=== PATIENT | male | born 1935 | race Caucasian/White ===

== ENCOUNTER 2017-10-21 18:34 | Emergency (ER) | payer OTHER ==
[~2017-10-21] VITALS: Ht 172.7 cm; Wt 90.5 kg
[2017-10-21 18:35] VITALS: BP 122/58; PULSE 72; RESP 18; TEMP 98.9; O2SAT 94
--- NOTE | 2017-10-21 20:18 | PD ---
HPI Chief Complaint: GI Complaint Time Seen by Provider: 20:17 Travel History International Travel<30 days: No Contact w/Intl Traveler<30days: No Traveled to known affect area: No History of Present Illness HPI 82-year-old male arrives with the hiccups for 2 weeks. He reports hiccuping several times on expiration leading to shortness of breath. He has no chest pain. Has had no fever. Patient continues initially the headache up's seemed to resolve while he was walking however now they're constant. Various medications use at home/home remedies conferred no benefit. He also reports a dull pain in the middle the back with a jabbing quality. Timing constant. Severity moderate. PFSH Social History Tobacco Use: No Allergies-Medications (Allergen,Severity, Reaction): Coded Allergies: metformin (Verified Allergy, Unknown, 10/21/17) Reported Meds & Prescriptions Reported Meds & Active Scripts Active Prochlorperazine Maleate 10 Mg Tab 10 Mg PO Q6H PRN Review of Systems Except as stated in HPI: all other systems reviewed are Neg General / Constitutional: No: Fever Respiratory: Positive: Shortness of Breath, No: Cough Physical Exam Narrative GENERAL: 82-year-old male well-nourished well-developed pleasant, hiccuping SKIN: Focused skin assessment warm/dry. HEAD: Atraumatic. Normocephalic. EYES: Pupils equal and round. No scleral icterus. No injection or drainage. ENT: No nasal bleeding or discharge. Mucous membranes pink and moist. NECK: Trachea midline. No JVD. CARDIOVASCULAR: Regular rate and rhythm. No murmur appreciated. RESPIRATORY: No accessory muscle use. Clear to auscultation. Breath sounds equal bilaterally. GASTROINTESTINAL: Abdomen soft, non-tender, nondistended. Hepatic and splenic margins not palpable. MUSCULOSKELETAL: No obvious deformities. No clubbing. No cyanosis. No edema. NEUROLOGICAL: Awake and alert. No obvious cranial nerve deficits. Motor grossly within normal limits. Normal speech. PSYCHIATRIC: Appropriate mood and affect; insight and judgment normal. Data Data Last Documented VS Vital Signs Date Time Temp Pulse Resp B/P (MAP) Pulse Ox O2 Delivery O2 Flow Rate FiO2 10/21/17 23:15 52 18 156/70 (98) 98 10/21/17 21:32 Room Air 10/21/17 18:35 98.9 Vital signs reviewed Orders Orders Electrocardiogram (10/21/17 20:34) Basic Metabolic Panel (Bmp) (10/21/17 20:34) Ckmb (Isoenzyme) Profile (10/21/17 20:34) Complete Blood Count With Diff (10/21/17 20:34) Magnesium (Mg) (10/21/17 20:34) Prothrombin Time / Inr (Pt) (10/21/17 20:34) Act Partial Throm Time (Ptt) (10/21/17 20:34) Troponin I (10/21/17 20:34) Chest, Single Ap (10/21/17 20:34) Ecg Monitoring (10/21/17 20:34) Bilateral Bp Monitoring (10/21/17 20:34) Iv Access Insert/Monitor (10/21/17 20:34) Oximetry (10/21/17 20:34) Oxygen Administration (10/21/17 20:34) Prochlorperazine Inj (Compazine Inj) (10/21/17 21:15) Ct Thorax/ Chest W Iv Contrast (10/21/17 ) Ed Discharge Order (10/21/17 23:07) Labs Laboratory Tests Test 10/21/17 20:40 White Blood Count 9.5 TH/MM3 Red Blood Count 4.45 MIL/MM3 Hemoglobin 13.7 GM/DL Hematocrit 40.9 % Mean Corpuscular Volume 92.1 FL Mean Corpuscular Hemoglobin 30.8 PG Mean Corpuscular Hemoglobin Concent 33.5 % Red Cell Distribution Width 13.1 % Platelet Count 213 TH/MM3 Mean Platelet Volume 8.9 FL Neutrophils (%) (Auto) 70.0 % Lymphocytes (%) (Auto) 18.4 % Monocytes (%) (Auto) 9.1 % Eosinophils (%) (Auto) 1.7 % Basophils (%) (Auto) 0.8 % Neutrophils # (Auto) 6.6 TH/MM3 Lymphocytes # (Auto) 1.7 TH/MM3 Monocytes # (Auto) 0.9 TH/MM3 Eosinophils # (Auto) 0.2 TH/MM3 Basophils # (Auto) 0.1 TH/MM3 CBC Comment DIFF FINAL Differential Comment Prothrombin Time 10.3 SEC Prothromb Time International Ratio 1.0 RATIO Activated Partial Thromboplast Time 25.8 SEC Blood Urea Nitrogen 30 MG/DL Creatinine 1.55 MG/DL Random Glucose 195 MG/DL Calcium Level 8.9 MG/DL Magnesium Level 1.9 MG/DL Sodium Level 137 MEQ/L Potassium Level 4.3 MEQ/L Chloride Level 100 MEQ/L Carbon Dioxide Level 28.7 MEQ/L Anion Gap 8 MEQ/L Estimat Glomerular Filtration Rate 43 ML/MIN Total Creatine Kinase 43 U/L Troponin I LESS THAN 0.02 NG/ML MDM Medical Decision Making Medical Screen Exam Complete: Yes Emergency Medical Condition: Yes Medical Record Reviewed: Yes Differential Diagnosis Tumor, pickups, brain lesion Narrative Course CBC & BMP Diagram 10/21/17 20:40 Calcium Level 8.9, Magnesium Level 1.9 Last 24 hours Impressions Chest X-Ray 10/21/172033 Signed Impressions: Service Date/Time: Saturday, October 21, 2017 20:57 - CONCLUSION: 1. Post median sternotomy. Mild cardiomegaly. No consolidation or effusion. Ryan Ruiz MD Chest CT 10/21/17 0000 Signed Impressions: Service Date/Time: Saturday, October 21, 2017 21:47 - CONCLUSION: 1. 9 mm nodule at the right lung base. Biopsy would be difficult given proximity to the diaphragm. Further evaluation with PET scan recommended. Scattered parenchymal scarring in the lungs. 2. Dilatation of esophagus most characteristic of esophageal motility disorder. 3. Moderate to severe coronary artery calcifications. 4. Fatty liver. No effusion or adenopathy. Previous sternotomy. Ryan Ruiz MD Results CT scan discussed the patient who understands the necessity of outside follow-up is absolutely mandatory to rule out lung cancer the very concerning cause for 2 weeks a headache absence 82-year-old male. There was fortunately an excellent response to the Compazine and the patient was discharged with a Compazine prescription. Diagnosis Primary Impression: Chronic hiccoughs Additional Impression: Mass of right lung Referrals: [facility] 2 days Med/Other Pt SpecificInfo: Prescription(s) given Scripts Prochlorperazine Maleate (Prochlorperazine Maleate) 10 Mg Tab 10 MG PO Q6H Y for HICCOUGHS, #20 TAB 0 Refills Prov: Marcello Pollack MD 10/21/17 Disposition: 01 DISCHARGE HOME Condition: Stable Marcello Pollack MD Oct 21, 2017 20:17
[2017-10-21 20:46] VITALS: O2SAT 98
[2017-10-21 20:57] LABS: AUTOMATED NEUTROPHIL # 6.6 TH/MM3 (1.8-7.7); BASOPHIL # 0.1 TH/MM3 (0-0.2); BASOPHIL % 0.8 % (0.0-2.0); EOSINOPHIL # 0.2 TH/MM3 (0-0.4); EOSINOPHIL % 1.7 % (0.0-4.0); HEMATOCRIT 40.9 % (39.0-51.0); HEMOGLOBIN 13.7 GM/DL (13.0-17.0); LYMPH % 18.4 % (9.0-44.0); LYMPHOCYTE # 1.7 TH/MM3 (1.0-4.8); MEAN CELL VOLUME 92.1 FL (80.0-100.0); MEAN CORPUSCULAR HEMOGLOBIN 30.8 PG (27.0-34.0); MEAN CORPUSCULAR HGB CONC 33.5 % (32.0-36.0); MEAN PLATELET VOLUME 8.9 FL (7.0-11.0); MONO % 9.1 % (0.0-8.0); MONOCYTE # 0.9 TH/MM3 (0-0.9); PLATELET COUNT 213 TH/MM3 (150-450); RED BLOOD COUNT 4.45 MIL/MM3 (4.50-5.90); RED CELL DISTRIBUTION WIDTH 13.1 % (11.6-17.2); WHITE BLOOD COUNT 9.5 TH/MM3 (4.0-11.0)
[2017-10-21 21:06] LABS: PROTHROMBIN TIME - PATIENT 10.3 SEC (9.8-11.6)
[2017-10-21 21:08] LABS: BICARBONATE 28.7 MEQ/L (21.0-32.0); BLOOD UREA NITROGEN 30 MG/DL (7-18); CALCIUM 8.9 MG/DL (8.5-10.1); CHLORIDE 100 MEQ/L (98-107); CREATININE 1.55 MG/DL (0.60-1.30); GLOMERULAR FILTRATION RATE 43 ML/MIN (>89); GLUCOSE,RANDOM 195 MG/DL (74-106); MAGNESIUM 1.9 MG/DL (1.5-2.5); SODIUM (NA) 137 MEQ/L (136-145)
[2017-10-21 21:12] LABS: TROPONIN I LESS THAN 0.02 NG/ML (0.02-0.05)
[2017-10-21] MEDS ORDERED: PROCHLORPERAZINE INJ 10 MG/2 ML VIAL IV PUSH ONE (21:15)
--- NOTE | 2017-10-21 21:19 | RADRPT ---
EXAM DATE/TIME: 10/21/2017 20:57 [facility] COMPARISON: No previous studies available for comparison. INDICATIONS : Hiccups for 2 weeks. MEDICAL HISTORY : Hypertension. Diabetes mellitus type II. Former smoker. SURGICAL HISTORY : CABG. ENCOUNTER: Initial ACUITY: 2 weeks PAIN SCORE: 0/10 LOCATION: Bilateral chest. FINDINGS: A single view of the chest demonstrates the lungs to be symmetrically aerated without evidence of mas s, infiltrate or effusion. The cardiomediastinal contours mildly prominent. Previous median sternoto my. Tortuous aorta. CONCLUSION: 1. Post median sternotomy. Mild cardiomegaly. No consolidation or effusion. Ryan Ruiz MD on October 21, 2017 at 21:15 Board Certified Radiologist. This report was verified electronically.
[2017-10-21 21:32] VITALS: BP 141/64; PULSE 54; RESP 18; O2SAT 97
[2017-10-21] MEDS ORDERED: IOHEXOL 350 MG/ML 10 ML VIAL (for RAD DIAG) IVCONTRAST ONE (21:47)
--- NOTE | 2017-10-21 22:29 | RADRPT ---
EXAM DATE/TIME: 10/21/2017 21:47 [facility] COMPARISON: No previous studies available for comparison. INDICATIONS : Cough; rule out mass. IV CONTRAST: 60 cc Omnipaque 350 (iohexol) IV RADIATION DOSE: 6.39 CTDIvol (mGy) MEDICAL HISTORY : Hypertension. Myocardial infarction. Mesothelioma SURGICAL HISTORY : Hernia repair ENCOUNTER: Initial ACUITY: 1 day PAIN SCALE: 0/10 LOCATION: chest TECHNIQUE: Volumetric scanning of the chest was performed. Using automated exposure control and adjustment of t he mA and/or kV according to patient size, radiation dose was kept as low as reasonably achievable to obtain optimal diagnostic quality images. DICOM format image data is available electronically for review and comparison. Follow-up recommendations for detected pulmonary nodules are based at a minimum on nodule size and pa tient risk factors according to Fleischner Society Guidelines. FINDINGS: Postoperative median sternotomy. Scattered linear parenchymal scarring in the lungs. 9 mm nodule at t he right lung base, well circumscribed. Mild esophageal dilatation likely representing esophageal motility disorder. No hilar, mediastinal ax illary adenopathy. Moderate coronary calcifications. No acute findings in the upper abdomen. Mild fatty liver. CONCLUSION: 1. 9 mm nodule at the right lung base. Biopsy would be difficult given proximity to the diaphragm. Fu rther evaluation with PET scan recommended. Scattered parenchymal scarring in the lungs. 2. Dilatation of esophagus most characteristic of esophageal motility disorder. 3. Moderate to severe coronary artery calcifications. 4. Fatty liver. No effusion or adenopathy. Previous sternotomy. Ryan Ruiz MD on October 21, 2017 at 22:22 Board Certified Radiologist. This report was verified electronically.
[2017-10-21] MEDS ORDERED: PROC10TA PO (23:04)
[2017-10-21 23:15] VITALS: BP 156/70
--- NOTE | 2017-10-22 13:34 | EKG ---
Date Performed: 10/21/2017 Time Performed: 20:30:32 PTAGE: 82 years EKG: Atrial flutter with somewhat slow ventricular response Right bundle branch block [place] indet erminate Nonspecific ST-T wave change NO PREVIOUS TRACING DOCTOR: Jabari Lee Interpretating Date/Time 10/22/2017 13:33:12
== END 2017-10-21 23:31 | disposition home or self-care (01) ==
LOC: NEPD 18:34
DX: R06.6 Hiccough (principal); R91.8 Other nonspecific abnormal finding of lung field; R06.02 Shortness of breath; I48.92 Unspecified atrial flutter
CPT/HCPCS: 71045; 71260; 80048; 82550; 83735; 84484; 85025; 85610; 85730; 93005; 96374; 99285; J0780; Q9967

== ENCOUNTER 2017-10-23 10:38 | Observation (INO) | payer OTHER ==
[~2017-10-23] VITALS: Ht 172.7 cm; Wt 90.6 kg
[2017-10-23] VITALS (9 sets, daily range): BP systolic 114–161; BP diastolic 57–98; PULSE 57–107; RESP 17–20; TEMP 97.4–98.2; O2SAT 92–99
[~2017-10-23 10:38] MED LIST: PROC10TA PO
[2017-10-23] MEDS ORDERED: METF500T PO (11:07)
[2017-10-23] MEDS ORDERED: GLIP5TAB8 PO (11:07)
[2017-10-23] MEDS ORDERED: PRAV10TA PO (11:07)
[2017-10-23] MEDS ORDERED: TERA1CAP3 PO (11:07)
[2017-10-23] MEDS ORDERED: ASPI81TA16 PO (11:07)
[2017-10-23] MEDS ORDERED: SODIUM CHLORIDE 0.9% FLUSH 10 ML FLUSH IVF PRN (11:15)
--- NOTE | 2017-10-23 11:30 | PD ---
HPI Chief Complaint: Syncope/Near-Syncope Time Seen by Provider: 10:51 Travel History International Travel<30 days: No Contact w/Intl Traveler<30days: No Traveled to known affect area: No History of Present Illness HPI This patient is brought in after having a syncopal episode while eating breakfast. He was out at a restaurant with a friend who witnessed him lose consciousness and slumped over. No injury occurred. For The last 4 days the patient's having spells of near syncope and feeling lightheaded frequently. He denies any chest pain. He has history of chronic A. fib and takes a baby aspirin daily. He has history of bypass 16 years ago. Symptoms severity is moderate. No alleviating factors. Exacerbating factors. PFSH Past Medical History Hx Anticoagulant Therapy: Yes Cardiovascular Problems: Yes High Cholesterol: Yes Diabetes: Yes Patient Takes Glucophage: Yes Diminished Hearing: No Hypertension: Yes Myocardial Infarction: Yes Tetanus Vaccination: Unknown Influenza Vaccination: Yes Past Surgical History Abdominal Surgery: Yes (AB HERNIA REPAIR ) Cardiac Surgery: Yes (BYPASS) Eye Surgery: Yes (R EYE) Tonsillectomy: Yes Social History Alcohol Use: No Tobacco Use: No Substance Use: No Allergies-Medications (Allergen,Severity, Reaction): Coded Allergies: metformin (Verified Allergy, Unknown, 10/23/17) Reported Meds & Prescriptions Reported Meds & Active Scripts Active Prochlorperazine Maleate 10 Mg Tab 10 Mg PO Q6H PRN Reported Terazosin (Terazosin HCl) Unknown Strength Cap 1 Cap PO HS Aspirin Adult Low Strength (Aspirin) 81 Mg Tabdr 81 Mg PO DAILY Glipizide Unknown Strength Tab 1 Tab PO BID Take 30 minutes before a meal Metformin (Metformin HCl) Unknown Strength Tab 1 Tab PO BID Pravastatin Unknown Strength Tab 1 Tab PO DAILY Review of Systems General / Constitutional: No: Fever Eyes: No: Visual changes HENT: Positive: Lightheadedness, No: Headaches Cardiovascular: Positive: Irregular Rhythm, Syncope, No: Chest Pain or Discomfort Respiratory: No: Shortness of Breath Gastrointestinal: No: Abdominal Pain Genitourinary: No: Dysuria Musculoskeletal: No: Pain Skin: No Rash Neurologic: Positive: Dizziness, Syncope, No: Weakness Psychiatric: No: Depression Endocrine: No: Polydipsia Hematologic/Lymphatic: No: Easy Bruising Physical Exam Narrative GENERAL: Well-nourished, well-developed patient in no apparent distress. SKIN: Focused skin assessment reveals no rash and nodules. Skin is Warm and dry. HEAD: Atraumatic. Normocephalic. EYES: Pupils equal and round. No scleral icterus. No injection or drainage. ENT: No nasal bleeding or discharge. Mucous membranes pink and moist. NECK: Trachea midline. No JVD. CARDIOVASCULAR: Irregularly irregular rhythm. No murmur appreciated. Heart rate 100 RESPIRATORY: No accessory muscle use. Clear to auscultation. Breath sounds equal bilaterally. GASTROINTESTINAL: Abdomen soft, non-tender, nondistended. Hepatic and splenic margins not palpable. MUSCULOSKELETAL: No obvious deformities. No clubbing. No cyanosis. No edema. NEUROLOGICAL: Awake and alert. No obvious cranial nerve deficits. Motor grossly within normal limits. Normal speech. PSYCHIATRIC: Appropriate mood and affect; insight and judgment normal. Data Data Last Documented VS Vital Signs Date Time Temp Pulse Resp B/P (MAP) Pulse Ox O2 Delivery O2 Flow Rate FiO2 10/23/17 11:34 95 Room Air 10/23/17 11:00 96 17 10/23/17 10:39 97.6 Orders Orders Electrocardiogram (10/23/17 ) Electrocardiogram (10/23/17 11:10) Basic Metabolic Panel (Bmp) (10/23/17 11:10) Complete Blood Count With Diff (10/23/17 11:10) Ecg Monitoring (10/23/17 11:10) Iv Access Insert/Monitor (10/23/17 11:10) Oximetry (10/23/17 11:10) Sodium Chloride 0.9% Flush (Ns Flush) (10/23/17 11:15) Labs Laboratory Tests Test 10/23/17 11:25 White Blood Count 10.7 TH/MM3 Red Blood Count 4.51 MIL/MM3 Hemoglobin 14.1 GM/DL Hematocrit 42.0 % Mean Corpuscular Volume 93.1 FL Mean Corpuscular Hemoglobin 31.3 PG Mean Corpuscular Hemoglobin Concent 33.6 % Red Cell Distribution Width 13.2 % Platelet Count 212 TH/MM3 Mean Platelet Volume 9.2 FL Neutrophils (%) (Auto) 79.1 % Lymphocytes (%) (Auto) 11.5 % Monocytes (%) (Auto) 7.8 % Eosinophils (%) (Auto) 1.1 % Basophils (%) (Auto) 0.5 % Neutrophils # (Auto) 8.5 TH/MM3 Lymphocytes # (Auto) 1.2 TH/MM3 Monocytes # (Auto) 0.8 TH/MM3 Eosinophils # (Auto) 0.1 TH/MM3 Basophils # (Auto) 0.1 TH/MM3 CBC Comment DIFF FINAL Differential Comment Blood Urea Nitrogen 29 MG/DL Creatinine 1.53 MG/DL Random Glucose 175 MG/DL Calcium Level 8.5 MG/DL Sodium Level 139 MEQ/L Potassium Level 3.7 MEQ/L Chloride Level 102 MEQ/L Carbon Dioxide Level 27.5 MEQ/L Anion Gap 10 MEQ/L Estimat Glomerular Filtration Rate 44 ML/MIN MDM Medical Decision Making Medical Screen Exam Complete: Yes Emergency Medical Condition: Yes Medical Record Reviewed: Yes Differential Diagnosis A. fib with RVR, SVT, ventricular tachycardia Narrative Course I have reviewed the patient's electronic medical record. Patient was here 2 days ago with hiccup problems and had extensive workup including labs and CT and chest x-ray IV placed CBC is normal shows minor renal insufficiency Metabolic profile I reviewed his EKG which shows atrial fibrillation but rate controlled Extended cardiac monitoring reveals rate controlled A. fib Patient is neurologically intact I'm concerned about cardiac cause of his true syncope in the setting of an elderly male with known cardiac disease Is also been having events for the last 4 days. I reviewed his medical residents. He will be a telemetry observation for syncope evaluation Diagnosis Primary Impression: Syncope Qualified Codes: R55 - Syncope and collapse Additional Impression: Chronic atrial fibrillation Admitting Information Admitting Physician Requests: Observation Escobar Banegas MD Oct 23, 2017 11:30
[2017-10-23 11:45] LABS: AUTOMATED NEUTROPHIL # 8.5 TH/MM3 (1.8-7.7); BASOPHIL # 0.1 TH/MM3 (0-0.2); BASOPHIL % 0.5 % (0.0-2.0); EOSINOPHIL # 0.1 TH/MM3 (0-0.4); EOSINOPHIL % 1.1 % (0.0-4.0); HEMOGLOBIN 14.1 GM/DL (13.0-17.0); LYMPH % 11.5 % (9.0-44.0); LYMPHOCYTE # 1.2 TH/MM3 (1.0-4.8); MEAN CELL VOLUME 93.1 FL (80.0-100.0); MEAN CORPUSCULAR HEMOGLOBIN 31.3 PG (27.0-34.0); MEAN CORPUSCULAR HGB CONC 33.6 % (32.0-36.0); MEAN PLATELET VOLUME 9.2 FL (7.0-11.0); MONO % 7.8 % (0.0-8.0); MONOCYTE # 0.8 TH/MM3 (0-0.9); NEUT % 79.1 % (16.0-70.0); PLATELET COUNT 212 TH/MM3 (150-450); RED BLOOD COUNT 4.51 MIL/MM3 (4.50-5.90); RED CELL DISTRIBUTION WIDTH 13.2 % (11.6-17.2); WHITE BLOOD COUNT 10.7 TH/MM3 (4.0-11.0)
[2017-10-23 12:03] LABS: BICARBONATE 27.5 MEQ/L (21.0-32.0); CALCIUM 8.5 MG/DL (8.5-10.1); CREATININE 1.53 MG/DL (0.60-1.30)
--- NOTE | 2017-10-23 13:52 | HHI.HP ---
[facility] Service Family Medicine Primary Care Physician [facility] Admission Diagnosis syncope, chronic a fib Diagnoses: International Travel<30 Days: No Contact w/Intl Traveler<30days: No Known Affected Area: No History of Present Illness 82 y/o M , pmhx of Anton, passed out this morning at a restaurant and last night at [employer] [facility]. This morning in the restaurant he was eating his family H and all of a sudden felt dizzy and felt like he is about to pass out. He told his he is going to pass out and then he had a 30 second period where he stared off to the right and the distance and then passed out for 2 minutes. When he was up or even the night before he also felt dizzy, sprays blurry vision , and felt like he is going to pass out. He did not stared to the distance or pass out on this occasion, however he did experience stool incontinence and [facility] The patient admits that he feels like he has not been drinking enough water lately. The complains that the patient has been fatigued for the past few months and he seems to fall asleep very easily at random times throughout the day. Denies any chest pain/shortness of breath. Denies any headache. The patient has been on a Holter monitor before for similar issues and his heart rate was noted to be between 45 and 140. The patient baseline does not have any vision out of his right eye. He has been having difficulty seeing out of his left eye for years also. He has recently brought this up with his PCP in their undergoing workup. The patient was here on Tuesday for 2 weeks of hiccups and all of his labs were normal at that point. (Ivone Orosco MD R2) Review of Systems Constitutional: COMPLAINS OF: Weight loss (20 lbs since June), Chills ( last night), Change in appetite (decreased in last 3 weeks), DENIES: Fever Endocrine: DENIES: Polydipsia, Polyuria Eyes: DENIES: Photosensitivity Ears, nose, mouth, throat: DENIES: Oral lesions, Throat pain Respiratory: COMPLAINS OF: Wheezing (wheezing a few weeks ago), DENIES: Cough Cardiovascular: DENIES: Dyspnea on Exertion, Lower Extremity Edema, Orthopnea Gastrointestinal: DENIES: Black stools, Bloody stools Genitourinary: DENIES: Hematuria, Testicular Pain Musculoskeletal: DENIES: Muscle aches, Stiffness Integumentary: DENIES: Nail changes, Rash Neurologic: DENIES: Headache, Paresthesias Psychiatric: DENIES: Mood changes, Depression Other Afibb & bypass (last seen 16 years ago) 5-6 years ago 45-200 Holter monitor Diabetes HTN lung nodule dx on tuesday (Ivone Orosco MD R2) Past Family Social History Past Medical History Afibb & bypass (last seen 16 years ago) 5-6 years ago he had a Holter monitor Diabetes HTN lung nodule dx on tuesday : 9 mm nodule at right lung base. Patient advised to follow-up with PET scan. "Asbestos lungs" per PCP (he Tuesday CT shows scattered parenchymal scarring in the lungs) Past Surgical History bypass 16 years ago eye surgery knee cartilage ankle surgery tonsillectomy Reported Medications Metoprolol Hydrochlorothiazide (unknown doses) (Ivone Orosco MD R2) Allergies: Coded Allergies: MRI PRECAUTION (Verified Adverse Reaction, Severe, METAL IN EYE, 10/24/17) PT HAS LARGE METAL FRAGMENT IN EYE AND WAS TOLD NEVER TO HAVE MRI. SEE CT. Family History 2 brothers: lung cancer Dad: lung cancer Mom: healthy Social History live at home alone, [place] smoker quit in 1989 (50 years x 2.5packs/day), used to have a drinking problem ( quit 1997), no drugs (Ivone Orosco MD R2) Physical Exam Vital Signs Vital Signs Date Time Temp Pulse Resp B/P (MAP) Pulse Ox O2 Delivery O2 Flow Rate FiO2 10/23/17 11:34 95 Room Air 10/23/17 11:00 96 17 120/98 (105) 94 Room Air 10/23/17 10:54 94 Room Air 10/23/17 10:39 97.6 107 18 120/57 (78) 92 Physical Exam GENERAL: This is a well-nourished, well-developed patient, in no apparent distress. SKIN: No rashes, ecchymoses or lesions. Cool and dry. HEAD: Atraumatic. Normocephalic. No temporal or scalp tenderness. EYES: Pupils equal round and reactive. Extraocular motions intact. No scleral icterus. No injection or drainage. ENT: Nose without bleeding, purulent drainage or septal hematoma. Throat without erythema, tonsillar hypertrophy or exudate. Uvula midline. Airway patent. NECK: Trachea midline. No JVD or lymphadenopathy. Supple, nontender, no meningeal signs. CARDIOVASCULAR: Irregular rhythm noted, 3/6 systolic murmur, gallops, or rubs. RESPIRATORY: Clear to auscultation. Breath sounds equal bilaterally. No wheezes , rales, or rhonchi. GASTROINTESTINAL: Abdomen soft, non-tender, nondistended. No hepato-splenomegaly , or palpable masses. No guarding. MUSCULOSKELETAL: Extremities without clubbing, cyanosis, or edema. No joint tenderness, effusion, or edema noted. No calf tenderness. Negative Homans sign bilaterally. NEUROLOGICAL: Awake and alert. Cranial nerves II through XII intact. Motor and sensory grossly within normal limits. Five out of 5 muscle strength in all muscle groups. Normal speech. Laboratory Laboratory Tests Test 10/23/17 11:25 White Blood Count 10.7 Red Blood Count 4.51 Hemoglobin 14.1 Hematocrit 42.0 Mean Corpuscular Volume 93.1 Mean Corpuscular Hemoglobin 31.3 Mean Corpuscular Hemoglobin Concent 33.6 Red Cell Distribution Width 13.2 Platelet Count 212 Mean Platelet Volume 9.2 Neutrophils (%) (Auto) 79.1 Lymphocytes (%) (Auto) 11.5 Monocytes (%) (Auto) 7.8 Eosinophils (%) (Auto) 1.1 Basophils (%) (Auto) 0.5 Neutrophils # (Auto) 8.5 Lymphocytes # (Auto) 1.2 Monocytes # (Auto) 0.8 Eosinophils # (Auto) 0.1 Basophils # (Auto) 0.1 CBC Comment DIFF FINAL Differential Comment Blood Urea Nitrogen 29 Creatinine 1.53 Random Glucose 175 Calcium Level 8.5 Sodium Level 139 Potassium Level 3.7 Chloride Level 102 Carbon Dioxide Level 27.5 Anion Gap 10 Estimat Glomerular Filtration Rate 44 (Ivone Orosco MD R2) Result Diagram: 10/23/17 1125 10/23/17 1125 Septic Shock Reassessment Septic shock perfusion: reassessment completed (Ivone Orosco MD R2) Caprini VTE Risk Assessment Caprini VTE Risk Assessment: No/Low Risk (score <= 1) Caprini Risk Assessment Model Point Value = 1 Point Value = 2 Point Value = 3 Point Value = 5 Age 41-60 Minor surgery BMI > 25 kg/m2 Swollen legs Varicose veins or History of unexplained or recurrent spontaneous Oral contraceptives or hormone replacement Sepsis (< 1 month) Serious lung disease, including pneumonia (< 1 month) Abnormal pulmonary function Acute myocardial infarction Congestive heart failure (< 1 month) History of inflammatory bowel disease Medical patient at bed rest Age 61-74 Arthroscopic surgery Major open surgery (> 45 min) Laparoscopic surgery (> 45 min) Malignancy Confined to bed (> 72 hours) Immobilizing plaster cast Central venous access Age >= 75 History of VTE Family history of VTE Factor V Leiden Prothrombin [id number] Lupus anticoagulant Anticardiolipin antibodies Elevated serum homocysteine Heparin-induced thrombocytopenia Other congenital or acquired thrombophilia Stroke (< 1 month) Elective arthroplasty Hip, pelvis, or leg fracture Acute spinal cord injury (< 1 month) Prophylaxis Regimen Total Risk Factor Score Risk Level Prophylaxis Regimen 0-1 Low Early ambulation 2 Moderate Order ONE of the following: *Sequential Compression Device (SCD) *Heparin 5000 units SQ BID 3-4 Higher Order ONE of the following medications: *Heparin 5000 units SQ TID *Enoxaparin/Lovenox 40 mg SQ daily (WT < 150 kg, CrCl > 30 mL/min) *Enoxaparin/Lovenox 30 mg SQ daily (WT < 150 kg, CrCl > 10-29 mL/min) *Enoxaparin/Lovenox 30 mg SQ BID (WT < 150 kg, CrCl > 30 mL/min) AND/OR *Sequential Compression Device (SCD) 5 or more Highest Order ONE of the following medications: *Heparin 5000 units SQ TID (Preferred with Epidurals) *Enoxaparin/Lovenox 40 mg SQ daily (WT < 150 kg, CrCl > 30 mL/min) *Enoxaparin/Lovenox 30 mg SQ daily (WT < 150 kg, CrCl > 10-29 mL/min) *Enoxaparin/Lovenox 30 mg SQ BID (WT < 150 kg, CrCl > 30 mL/min) AND *Sequential Compression Device (SCD) (Ivone Orosco MD R2) Assessment and Plan Assessment and Plan 82-year-old male with chronic A. fib presenting with syncopal episode, and months of presyncopal symptoms. Code Status Full Code (Ivone Orosco MD R2) Problem List: (1) Syncope ICD Codes: R55 - Syncope and collapse Status: Acute Plan: Syncopal workup as follows: Telemetry Echocardiogram Carotid ultrasound (2) Chronic atrial fibrillation ICD Codes: I48.2 - Chronic atrial fibrillation Status: Chronic Plan: EKG shows atrial flutter consistent with EKG on 10/21/17, with more rapid response, RBBB Extended telemetry monitoring shows rate-controlled A. fib Heart rate within normal limits Continue to monitor telemetry Follow-up serial EKGs and troponins for ACS workup (3) fen/ppx Status: Chronic Plan: Fluids: Continue by mouth fluids, maintenance fluids Electrolytes: Monitor BMP and supplement accordingly : Full diet, advised by mouth hydration (Ivone Orosco MD R2) Problem List: (1) Syncope ICD Codes: R55 - Syncope and collapse Status: Acute Plan: Syncopal workup as follows: Telemetry Echocardiogram Carotid ultrasound (2) Chronic atrial fibrillation ICD Codes: I48.2 - Chronic atrial fibrillation Status: Chronic Plan: EKG shows atrial flutter consistent with EKG on 10/21/17, with more rapid response, RBBB Extended telemetry monitoring shows rate-controlled A. fib Heart rate within normal limits Continue to monitor telemetry Follow-up serial EKGs and troponins for ACS workup (3) fen/ppx Status: Chronic Plan: Fluids: Continue by mouth fluids, maintenance fluids Electrolytes: Monitor BMP and supplement accordingly : Full diet, advised by mouth hydration See the residents documentation for details. I saw and evaluated the patient regarding the see portions of this evaluation and agree with the residents findings and plans as written. Parts of this note were created using [employer] voice recognition software program. While efforts were made to correct any mistakes made by this software, some mistakes, errors, and omissions may remain in the final note that were not caught when the note was originally created. Plan of care was discussed and agreed upon with the patient as specifically documented in the above note. An opportunity to ask questions with explanation was provided. Patient voiced understanding on all information reviewed and discussed. (Edwin Posada MD) Physician Certification 2 Midnight Certification Type: Admission for Inpatient Services Order for Inpatient Services The services are ordered in accordance with Medicare regulations or non- Medicare payer requirements, as applicable. In the case of services not specified as inpatient-only, they are appropriately provided as inpatient services in accordance with the 2-midnight benchmark. Estimated LOS (days): 2 days is the estimated time the patient will need to remain in the hospital, assuming treatment plan goals are met and no additional complications. Post-Hospital Plan: Home (Ivone Orosco MD R2) Problem Qualifiers (1) Syncope: Qualified Codes: R55 - Syncope and collapse Ivone Orosco MD R2 Oct 23, 2017 13:52 Edwin Posada MD Oct 25, 2017 16:16
[2017-10-23] MEDS ORDERED: PROCHLORPERAZINE MALEATE 10 MG TAB PO PRN (14:00)
--- NOTE | 2017-10-23 14:03 | EKG ---
Date Performed: 10/23/2017 Time Performed: 10:55:39 PTAGE: 82 years EKG: ATRIAL FLUTTER WITH SOMEWHAT RAPID VENTRICULAR RESPONSE RIGHT BUNDLE BRANCH BLOCK VERTICAL QRS AXIS Compared to previous tracing, ventricular response to the atrial flutter is more rapid, othe rwise no significant change. ABNORMAL ECG PREVIOUS TRACING : 10/21/2017 20.30.32 DOCTOR: Jabari Lee Interpretating Date/Time 10/25/2017 08:16:16
[2017-10-23] MEDS ORDERED: ACETAMINOPHEN 325 MG TAB PO PRN (14:15)
[2017-10-23] MEDS ORDERED: SODIUM CHLORIDE 0.9% FLUSH 10 ML FLUSH IV FLUSH PRN (14:15)
[2017-10-23] MEDS ORDERED: NALOXONE HCL 0.4 MG/ML AMP IV PUSH PRN (14:15)
[2017-10-23] MEDS: SODIUM CHLOR 0.45% 1000 ML INJ 1,000 ML IV SCH ×2 (16:38→21:50)
--- NOTE | 2017-10-23 16:41 | RADRPT ---
EXAM DATE/TIME: 10/23/2017 15:01 [facility] COMPARISON: No previous studies available for comparison. INDICATIONS : Syncope. MEDICAL HISTORY : Myocardial infarction. Hypercholesterolemia. Hypertension. Diabetes. Anticoagulant therapy. SURGICAL HISTORY : Tonsillectomy. CABG. Right eye surgery. Abdominal hernia repair. Right ankle ORIF. ENCOUNTER: Initial ACUITY: 1 day PAIN SCORE: 2/10 LOCATION: Bilateral neck PEAK SYSTOLIC VELOCITIES (cm/sec): ICA/CCA RATIO: Right: 2.5 Left: 1.1 ICA: Right: 125 Left: 97 CCA: Right: 50 Left: 89 ECA: Right: 236 Left: 183 VERTEBRAL: Right: 36 antegrade Left: 69 antegrade Elevated flow velocities and ICA/CCA ratios have been found to correlate with increased degrees of vessel stenosis, calculated as percentage of diameter relative to a normal segment of distal ICA/CCA FINDINGS: Ultrasound of the carotid arteries was performed bilaterally using real-time Doppler and color Dopple r imaging. Examination of the right carotid artery demonstrates moderate fibrous plaque within the bifurcation. No waveform abnormalities are identified and no spectral broadening is seen. There is elevated ratios and velocities on the right corresponding with greater than 50% stenosis. Examination of the left carotid artery demonstrates moderate fibrous plaque within the bulb. No wavef orm abnormalities are identified and no spectral broadening is seen. There is antegrade flow in both vertebral arteries. CONCLUSION: 1. Greater than 50% stenosis involving the right carotid artery. CT angiography of the cervicobrachia l arch and carotid arteries is recommended for further evaluation if clinically indicated. Arash Red MD on October 23, 2017 at 16:37 Board Certified Radiologist. This report was verified electronically.
[2017-10-23] MEDS: SODIUM CHLORIDE 0.9% FLUSH 10 ML FLUSH IV FLUSH SCH (21:00)
[2017-10-23] MEDS ORDERED: TERAZOSIN HCL 1 MG CAP PO SCH (21:00)
[2017-10-23] MEDS ORDERED: IOHEXOL 350 MG/ML 10 ML VIAL (for RAD DIAG) IVCONTRAST ONE (21:30)
[2017-10-23] MEDS ORDERED: DEXTROSE 50% IN WATER 50 ML VIAL(D50) IV PUSH PRN (21:45)
[2017-10-23] MEDS ORDERED: GLUCAGON 1 MG/ML VIAL OTHER PRN (21:45)
--- NOTE | 2017-10-23 21:55 | RADRPT ---
EXAM DATE/TIME: 10/23/2017 21:10 [facility] COMPARISON: No previous studies available for comparison. INDICATIONS : Syncopal episode; follow up abnormal ultrasound. IV CONTRAST: 80 cc Omnipaque 350 (iohexol) IV RADIATION DOSE: 10.52 CTDIvol (mGy) MEDICAL HISTORY : Hypertension. Cardiovascular disease SURGICAL HISTORY : CABG Abdominal hernia repair. ENCOUNTER: Subsequent ACUITY: 2 days PAIN SCALE: 0/10 LOCATION: neck Elevated flow velocities and ICA/CCA ratios have been found to correlate with increased degrees of vessel stenosis, calculated as percentage of diameter relative to a normal segment of distal ICA/CCA. TECHNIQUE: Volumetric scanning was performed using a multirow detector CT scanner. The data was post processed with a variety of visualization algorithms including full-volume maximum intensity pro jection, multiplanar sliding thin-slab reformation, curved-planar reformation, and surface-rendering techniques. Using automated exposure control and adjustment of the mA and/or kV according to patient size, radiation dose was kept as low as reasonably achievable to obtain optimal diagnostic quality i mages. DICOM format image data is available electronically for review and comparison. FINDINGS: AORTIC ARCH: Moderate calcified plaque is seen along the aortic arch extending into the origin of the great vessels. There is no in stent stenosis involving the origin of the great vessels. RIGHT CAROTID: Calcified plaque is identified in the right common carotid artery and right rotati on. There is [id number] stenosis at the origin of the right internal carotid artery which measu res in the 30-49% range. LEFT CAROTID: Eccentric calcified plaque is present in the left common and internal carotid arter ies. There is mild to moderate narrowing in the proximal internal carotid artery measuring in the 30- 49% range. VERTEBRALS: The vertebral arteries have a symmetric diameter. No stenotic lesions are seen. CONCLUSION: 1. Mild/moderate calcified plaque bilaterally with evidence of mild to moderate stenosis in the proxi mal internal carotid arteries measuring in the 30-49% range. 2. Patent vertebral arteries without significant proximal stenosis. Angel Tran MD on October 23, 2017 at 21:48 Board Certified Radiologist. This report was verified electronically.
[2017-10-24] VITALS (12 sets, daily range): BP systolic 130–184; BP diastolic 66–84; PULSE 53–88; RESP 16–18; TEMP 97.5–98.6; O2SAT 93–98
[2017-10-24] MEDS: SODIUM CHLOR 0.45% 1000 ML INJ 1,000 ML IV SCH ×4 (01:15→13:14)
[2017-10-24 07:16] LABS: AUTOMATED NEUTROPHIL # 6.1 TH/MM3 (1.8-7.7); BASOPHIL # 0.1 TH/MM3 (0-0.2); BASOPHIL % 0.7 % (0.0-2.0); EOSINOPHIL # 0.2 TH/MM3 (0-0.4); EOSINOPHIL % 2.1 % (0.0-4.0); HEMATOCRIT 38.4 % (39.0-51.0); HEMOGLOBIN 12.9 GM/DL (13.0-17.0); LYMPH % 28.7 % (9.0-44.0); LYMPHOCYTE # 2.9 TH/MM3 (1.0-4.8); MEAN CELL VOLUME 92.2 FL (80.0-100.0); MEAN CORPUSCULAR HEMOGLOBIN 30.9 PG (27.0-34.0); MEAN CORPUSCULAR HGB CONC 33.5 % (32.0-36.0); MEAN PLATELET VOLUME 9.8 FL (7.0-11.0); MONO % 7.5 % (0.0-8.0); MONOCYTE # 0.7 TH/MM3 (0-0.9); PLATELET COUNT 196 TH/MM3 (150-450); RED BLOOD COUNT 4.17 MIL/MM3 (4.50-5.90); RED CELL DISTRIBUTION WIDTH 13.1 % (11.6-17.2)
[2017-10-24 07:46] LABS: ALKALINE PHOSPHATASE 67 U/L (45-117); ALT (GPT) 17 U/L (12-78); TOTAL BILIRUBIN ADULT 0.5 MG/DL (0.2-1.0); TOTAL PROTEIN 6.2 GM/DL (6.4-8.2); TROPONIN I LESS THAN 0.02 NG/ML (0.02-0.05)
[2017-10-24 07:54] LABS: ALBUMIN 3.2 GM/DL (3.4-5.0); AST (GOT) 15 U/L (15-37); BICARBONATE 26.8 MEQ/L (21.0-32.0); BLOOD UREA NITROGEN 26 MG/DL (7-18); CALCIUM 8.2 MG/DL (8.5-10.1); CHLORIDE 101 MEQ/L (98-107); CREATININE 1.22 MG/DL (0.60-1.30); GLOMERULAR FILTRATION RATE 57 ML/MIN (>89); GLUCOSE,RANDOM 102 MG/DL (74-106); SODIUM (NA) 137 MEQ/L (136-145)
[2017-10-24] MEDS: INSULIN ASPART SUPPLEMENTAL SCALE SQ SCH ×4 (08:00→21:00)
[2017-10-24] MEDS ORDERED: PRAVASTATIN PO SCH (09:00)
[2017-10-24] MEDS ORDERED: GLIP5TAB8 PO (09:19)
[2017-10-24] MEDS ORDERED: METO25TA3 PO (09:19)
[2017-10-24] MEDS ORDERED: HYDR12.57 PO (09:19)
[2017-10-24 09:22] LABS: BANDS 1 % (0-6); BASOPHILS 2 % (0-2); LYMPHOCYTES 25 % (9-44); MONOCYTES 7 % (0-8); NEUTROPHIL # MANUAL DIFF 6.4 TH/MM3 (1.8-7.7); POLYS (SEG NEUTROPHILS) 63 % (16-70)
--- NOTE | 2017-10-24 09:44 | MB ---
cc: DORENE MEDRANO MD DATE OF CONSULTATION: 10/24/2017 HISTORY OF PRESENT ILLNESS This is a 82-year-old gentleman who has history of atrial fibrillation, that is admitted for syncopal episode. Over the past several days he has had symptoms of lightheadedness and dizziness. Last night he was eating and had a brief syncopal episode. He had no post syncopal confusion and no bowel or bladder incontinence was present but he did note the need to have a bowel movement immediately afterwards. This morning he was eating breakfast and again had episode of syncope for approximately 2 minutes ____ her hand on his chest and remarked that she felt that his heart rate was absent for a brief period of time and then was irregular once it restarted. On admission to the emergency department he was noted to have atrial fibrillation with slow ventricular response of 55. Coincidentally he was here the past week for chronic hiccups and was noted to have atrial flutter again with a controlled ventricular response. He notes that he has had an irregular heart rate for many years and has been on aspirin for that. PAST MEDICAL HISTORY He has a past medical history of: 1. Coronary artery disease with bypass grafting 16 years ago. 2. Type 2 diabetes. 3. Hypertension. 4. On Tuesday he also underwent a CT scan revealing a 9 mm nodule at the right base which is well-circumscribed. 5. He is a nonsmoker having stopped many years ago. MEDICATIONS Medications at home have included: 1. Metoprolol. 2. Hydrochlorothiazide. 3. Glipizide. 4. Pravastatin. 5. Sertraline. 6. Terazosin. ALLERGIES METFORMIN. SOCIAL HISTORY The patient receives his care through the [facility] and does not see cardiology. He is a nonsmoker. He does not drink or use recreational drugs. PHYSICAL EXAMINATION GENERAL: He is awake and alert, in no acute distress. VITAL SIGNS: Blood pressure is 130/70, pulse is approximately 70-80 and irregular. NECK: There is no neck vein distension. No carotid bruits are present. LUNGS: Lungs are clear. CARDIOVASCULAR: Exam reveals irregular rate and rhythm. There is no significant murmur present. ABDOMEN: Soft. There is no tenderness or organomegaly. EXTREMITIES: Reveal no edema. ASSESSMENT The patient has two episodes of syncope. Given his relatively slow rate, it is quite possible that he is having significant bradycardia. He does not complain of any chest pain to suggest ischemia and no symptoms are present to suggest seizure disorder. At this point in time certainly agree with continued following on telemetry. Will get an echocardiogram for further evaluation. He also has a history of type 2 diabetes and with his age, CHADS 2 score is greater than 2, he should be on anticoagulants for thromboembolic protection. I have started him on Eliquis for this and meanwhile will also continue his 81 mg of aspirin in view of his previous history of coronary artery disease. MD EN Navarro/BRIDGET /8:57 AM /9:07 AM
[2017-10-24] MEDS: SODIUM CHLORIDE 0.9% FLUSH 10 ML FLUSH IV FLUSH SCH ×2 (10:01→21:00)
[2017-10-24] MEDS: ASPIRIN EC 81 MG TABEC PO SCH (10:01)
[2017-10-24] MEDS: APIXABAN 5 MG TABLET PO SCH ×2 (10:01→21:16)
--- NOTE | 2017-10-24 11:00 | PD.VS.CON ---
History of Present Illness Chief Complaint: Syncope Evaluation of carotid arteries Consult Requested by: History of Present Illness Mr. Evans is a pleasant 82/M who presented to the ED c/o a witnessed syncopal episode lasting 1 minute while eating breakfast with a friend yesterday morning Pt c/o a near syncopal episode the day before with amaurosis (LEFT sided)/ last episode a few weeks ago Pt denied any speech or unilateral motor deficits during these episodes Pt w/o Chest pain or SOB (Adilene De Santiago) Past/Family/Social History Past Medical History Atrial Fibrillation CAD DM HTN Recent 9mm lung nodule (Right base) Past Surgical History CABG Tonsillectomy Social History Former smoker - "quit in the " Denied ETOH Denied illicit drug usage [employer] Lives alone Family History Father and 2 brothers- Hx of Lung Cancer (Adilene De Santiago) Home Medications Active Scripts Prochlorperazine Maleate (Prochlorperazine Maleate) 10 Mg Tab, 10 MG PO Q6H Y for HICCOUGHS, #20 TAB 0 Refills Prov:Marcello Pollack MD 10/21/17 Reported Medications Glipizide (Glipizide) 5 Mg Tab, 5 MG PO DAILY for Blood Sugar Management, #30 TAB 0 Refills Take 30 minutes before a meal 10/24/17 Hydrochlorothiazide (Hydrochlorothiazide) 12.5 Mg Cap, 12.5 MG PO DAILY, #30 CAP 0 Refills 10/24/17 Metoprolol Tartrate (Metoprolol Tartrate) 25 Mg Tab, 25 MG PO BID, #60 TAB 0 Refills 10/24/[address] (Aspirin Adult Low Strength) 81 Mg Tabdr, 81 MG PO DAILY, TAB 10/23/17 Glipizide (Glipizide) Unknown Strength Tab, 1 TAB PO BID for Blood Sugar Management, #60 TAB 0 Refills Take 30 minutes before a meal 10/23/17 Metformin (Metformin) Unknown Strength Tab, 1 TAB PO BID for Blood Sugar Management, #60 TAB 0 Refills 10/23/17 Pravastatin (Pravastatin) Unknown Strength Tab, 1 TAB PO DAILY for Cholesterol Management, #30 TAB 0 Refills 10/23/17 Discontinued Reported Medications Terazosin (Terazosin) Unknown Strength Cap, 1 CAP PO HS, #30 CAP 0 Refills 10/23/17 Physical Exam Vitals/I&O Date Time Temp Pulse Resp B/P (MAP) Pulse Ox O2 Delivery O2 Flow Rate FiO2 10/24/17 08:27 98.1 83 16 134/69 (90) 98 10/24/17 08:18 98.6 72 16 145/66 (92) 95 10/24/17 04:00 97.5 81 16 130/75 (93) 95 10/24/17 00:00 66 10/24/17 00:00 98.0 88 17 134/71 (92) 96 10/23/17 22:03 97.4 57 20 161/81 (107) 99 10/23/17 21:22 98 10/23/17 20:00 60 10/23/17 17:09 98.2 67 18 144/63 (90) 99 10/23/17 15:55 10/23/17 15:30 75 18 114/63 (80) 97 Room Air 10/23/17 13:30 79 18 131/59 (83) 97 Room Air 10/23/17 11:34 95 Room Air 10/23/17 11:00 96 17 120/98 (105) 94 Room Air 10/23/17 10:54 94 Room Air 10/23/17 10:39 97.6 107 18 120/57 (78) 92 10/24/17 10/24/17 10/24/17 07:00 15:00 23:00 Intake Total 1000 ml Balance 1000 ml Neuro: Alert and oriented X3 Pt w/o motor/speech/visual deficits Neck: No carotid bruits present Heart: Irregular, hx of Lungs: CTA Abdomen: S/NT Vascular: R/L radial pulses palpable Extremities: UE 5/5 LE 5/5 (Adilene De Santiago) Laboratory Tests Test 10/23/17 11:25 10/23/17 21:15 10/24/17 04:37 White Blood Count 10.7 10.0 Red Blood Count 4.51 4.17 Hemoglobin 14.1 12.9 Hematocrit 42.0 38.4 Mean Corpuscular Volume 93.1 92.2 Mean Corpuscular Hemoglobin 31.3 30.9 Mean Corpuscular Hemoglobin Concent 33.6 33.5 Red Cell Distribution Width 13.2 13.1 Platelet Count 212 196 Mean Platelet Volume 9.2 9.8 Neutrophils (%) (Auto) 79.1 61.0 Lymphocytes (%) (Auto) 11.5 28.7 Monocytes (%) (Auto) 7.8 7.5 Eosinophils (%) (Auto) 1.1 2.1 Basophils (%) (Auto) 0.5 0.7 Neutrophils # (Auto) 8.5 6.1 Lymphocytes # (Auto) 1.2 2.9 Monocytes # (Auto) 0.8 0.7 Eosinophils # (Auto) 0.1 0.2 Basophils # (Auto) 0.1 0.1 CBC Comment DIFF FINAL AUTO DIFF Differential Comment FINAL DIFF MANUAL Blood Urea Nitrogen 29 26 Creatinine 1.53 1.22 Random Glucose 175 102 Calcium Level 8.5 8.2 Sodium Level 139 137 Potassium Level 3.7 3.7 Chloride Level 102 101 Carbon Dioxide Level 27.5 26.8 Anion Gap 10 9 Estimat Glomerular Filtration Rate 44 57 Troponin I LESS THAN 0.02 LESS THAN 0.02 LESS THAN 0.02 Differential Total Cells Counted 100 Neutrophils % (Manual) 63 Band Neutrophils % 1 Lymphocytes % 25 Monocytes % 7 Eosinophils % 2 Basophils % 2 Neutrophils # (Manual) 6.4 Platelet Estimate NORMAL Platelet Morphology Comment CLUMPED Red Cell Morphology Comment NORMAL Total Protein 6.2 Albumin 3.2 Alkaline Phosphatase 67 Aspartate Amino Transf (AST/SGOT) 15 Alanine Aminotransferase (ALT/SGPT) 17 Total Bilirubin 0.5 Last 48 hours Impressions Neck CTA 10/23/17 0000 Signed Impressions: Service Date/Time: Monday, October 23, 2017 21:10 - CONCLUSION: 1. Mild/moderate calcified plaque bilaterally with evidence of mild to moderate stenosis in the proximal internal carotid arteries measuring in the 30-49%% range. 2. Patent vertebral arteries without significant proximal stenosis. Angel Tran MD Carotid Artery Ultrasound 10/23/17 0000 Signed Impressions: Service Date/Time: Monday, October 23, 2017 15:01 - CONCLUSION: 1. Greater than 50%% stenosis involving the right carotid artery. CT angiography of the cervicobrachial arch and carotid arteries is recommended for further evaluation if clinically indicated. Arash Red MD (Adilene De Santiago) Assessment and Plan Assessment: (1) Carotid artery disease Plan Pt evaluated for bilateral carotid artery disease Reviewed imaging studies/ pt with 50% stenosis L>R I do not believe pt's syncopal episode is related to his bilateral carotid artery disease as pt is asymptomatic w/o speech/unilateral weakness Plan Recommend/continue CV risk factor modification (ASA/Statin therapy) Discussed and reviewed CTA neck results w/ pt Pt advised to continue medical management Consult Neurology - Hx of recent episodes left sided amaurosis Pt made aware of plan and agrees Adilene [facility] [phone] (Adilene De Santiago) Plan Pt with vague LEFT EYE symptoms but not clear amaurosis. I don't think the syncopal episode was carotid based. Will ask neurology to weigh in with eye symptoms. Clearly, needs risk factor modification (ASA, statin) Will follow. Berhane Alberts MD FACS RPVI stenographic court reporter [facility] - Heart [facility] Vascular Surgery at [facility] [phone] (Berhane Alberts MD) Problem Qualifiers (1) Carotid artery disease: Qualified Codes: I77.9 - Disorder of arteries and arterioles, unspecified Adilene De Santiago Oct 24, 2017 11:00 Berhane Alberts MD Oct 24, 2017 11:31
--- NOTE | 2017-10-24 14:08 | HHI.FPPN ---
Subjective Remarks Pt seen and examined this morning. No acute events overnight, vital signs have been stable. 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 He denies any additional acute concerns this morning, he is feeling back to his baseline. (Mirian Burgess MD R3) Objective Vitals Vital Signs Date Time Temp Pulse Resp B/P (MAP) Pulse Ox O2 Delivery O2 Flow Rate FiO2 10/24/17 12:25 178/68 (104) 10/24/17 12:25 175/67 (103) 171/71 (104) 168/70 (102) 10/24/17 12:09 97.6 60 18 184/84 (117) 96 10/24/17 08:27 98.1 83 16 134/69 (90) 98 10/24/17 08:18 98.6 72 16 145/66 (92) 95 10/24/17 04:00 97.5 81 16 130/75 (93) 95 10/24/17 00:00 66 10/24/17 00:00 98.0 88 17 134/71 (92) 96 10/23/17 22:03 97.4 57 20 161/81 (107) 99 10/23/17 21:22 98 10/23/17 20:00 60 10/23/17 17:09 98.2 67 18 144/63 (90) 99 10/23/17 15:55 10/23/17 15:30 75 18 114/63 (80) 97 Room Air 10/23/17 13:30 79 18 131/59 (83) 97 Room Air I/O 10/23/17 10/23/17 10/23/17 10/24/17 10/24/17 10/24/17 07:00 15:00 23:00 07:00 15:00 23:00 Intake Total 301 ml 1000 ml Balance 301 ml 1000 ml Intake IV Total 301 ml 1000 ml # Voids 1 (Mirian Burgess MD R3) Result Diagram: 10/24/1743610/24/17436 Objective Remarks GENERAL: This is a well-nourished, well-developed patient, in no apparent distress. SKIN: No rashes, ecchymoses or lesions. Cool and dry. HEAD: Atraumatic. Normocephalic. EYES: Right pupil dilated. Extraocular motions intact. No scleral icterus. No injection or drainage. ENT: Nose without bleeding, purulent drainage or septal hematoma. Uvula midline. Airway patent. NECK: Trachea midline. No JVD or lymphadenopathy. Supple, nontender, no meningeal signs. CARDIOVASCULAR: Irregular rhythm noted, 3/6 systolic murmur, gallops, or rubs. RESPIRATORY: Clear to auscultation. Breath sounds equal bilaterally. No wheezes , rales, or rhonchi. GASTROINTESTINAL: Abdomen soft, nondistended. MUSCULOSKELETAL: Extremities without clubbing, cyanosis, or edema. No joint tenderness, effusion, or edema noted. No calf tenderness. Negative Homans sign bilaterally. NEUROLOGICAL: Awake and alert. Cranial nerves II through XII intact. Motor and sensory grossly within normal limits. Five out of 5 muscle strength in all muscle groups. Normal speech. (Mirian Burgess MD R3) A/P Assessment and Plan 82-year-old male with chronic A. fib presenting after syncopal episode, and months of presyncopal symptoms. Discharge Planning Anticipate discharge once syncope work up has been completed and pt has been evaluated by cardiology and vascular surgery, likely 1-2 days. (Mirian Burgess MD R3) Problem List: (1) Syncope ICD Codes: R55 - Syncope and collapse Status: Acute Plan: Continue syncopal workup as follows: Orthostatic vitals within normal limits Telemetry Echocardiogram ordered, not yet completed No noted episodes of hypoglycemia Carotid ultrasound:Greater than 50% stenosis involving the right carotid artery. Next CTA done for further evaluation. Neck CTA: Mild/moderate calcified plaque bilaterally with evidence of mild to moderate stenosis in the proximal internal carotid arteries measuring in the 30- 49 percentile range. Patent vertebral arteries without significant proximal stenosis. Cardiology consulted, appreciate recommendations -Patient started on Eliquis, CHADS 2 score greater than 2 -Continue aspirin 81 mg Vascular surgery consulted for further evaluation, appreciate recommendations -Continue with current cardiovascular risk factor modification -Neurology consulted (2) Chronic atrial fibrillation ICD Codes: I48.2 - Chronic atrial fibrillation Status: Chronic Plan: EKG shows atrial flutter consistent with EKG on 10/21/17, with more rapid response, RBBB Extended telemetry monitoring shows rate-controlled A. fib Heart rate within normal limits Continue to monitor telemetry Troponins less than 0.023, ACS ruled out See cardiology recommendations above (3) Diabetes ICD Codes: E11.9 - Type 2 diabetes mellitus without complications Plan: Hold home oral medication Low-dose insulin sliding scale Continue to monitor blood sugar (4) Hypertension ICD Codes: I10 - Essential (primary) hypertension Plan: Pt takes Lisinopril, hydrochlorothiazide and metoprolol at home -We'll hold metoprolol due to intermittent bradycardia -Resume hydrochlorothiazide and lisinopril -Continue to monitor blood pressure -Clonidine and hydralazine as needed (5) fen/ppx Status: Chronic Plan: Fluids: Continue by mouth fluids, vital signs have been stable, pt tolerating oral fluids and diet, will discontinue IV fluids Electrolytes: Monitor BMP and supplement accordingly DVT ppx: Pt taking Eliquis (Mirian Burgess MD R3) Problem List: (1) Syncope ICD Codes: R55 - Syncope and collapse Status: Acute Plan: Continue syncopal workup as follows: Orthostatic vitals within normal limits Telemetry Echocardiogram ordered, not yet completed No noted episodes of hypoglycemia Carotid ultrasound:Greater than 50% stenosis involving the right carotid artery. Next CTA done for further evaluation. Neck CTA: Mild/moderate calcified plaque bilaterally with evidence of mild to moderate stenosis in the proximal internal carotid arteries measuring in the 30- 49 percentile range. Patent vertebral arteries without significant proximal stenosis. Cardiology consulted, appreciate recommendations -Patient started on Eliquis, CHADS 2 score greater than 2 -Continue aspirin 81 mg Vascular surgery consulted for further evaluation, appreciate recommendations -Continue with current cardiovascular risk factor modification -Neurology consulted (2) Chronic atrial fibrillation ICD Codes: I48.2 - Chronic atrial fibrillation Status: Chronic Plan: EKG shows atrial flutter consistent with EKG on 10/21/17, with more rapid response, RBBB Extended telemetry monitoring shows rate-controlled A. fib Heart rate within normal limits Continue to monitor telemetry Troponins less than 0.023, ACS ruled out See cardiology recommendations above (3) Diabetes ICD Codes: E11.9 - Type 2 diabetes mellitus without complications Plan: Hold home oral medication Low-dose insulin sliding scale Continue to monitor blood sugar (4) Hypertension ICD Codes: I10 - Essential (primary) hypertension Plan: Pt takes Lisinopril, hydrochlorothiazide and metoprolol at home -We'll hold metoprolol due to intermittent bradycardia -Resume hydrochlorothiazide and lisinopril -Continue to monitor blood pressure -Clonidine and hydralazine as needed (5) fen/ppx Status: Chronic Plan: Fluids: Continue by mouth fluids, vital signs have been stable, pt tolerating oral fluids and diet, will discontinue IV fluids Electrolytes: Monitor BMP and supplement accordingly DVT ppx: Pt taking Eliquis See the residents documentation for details. I saw and evaluated the patient regarding the see portions of this evaluation and agree with the residents findings and plans as written. . Parts of this note were created using [employer] voice recognition software program. While efforts were made to correct any mistakes made by this software, some mistakes, errors, and omissions may remain in the final note that were not caught when the note was originally created. Plan of care was discussed and agreed upon with the patient as specifically documented in the above note. An opportunity to ask questions with explanation was provided. Patient voiced understanding on all information reviewed and discussed. (Edwin Posada MD) Problem Qualifiers (1) Syncope: Qualified Codes: R55 - Syncope and collapse Mirian Burgess MD R3 Oct 24, 2017 14:08 Edwin Posada MD Oct 25, 2017 16:23
[2017-10-24 14:40] LABS: CHOLESTEROL/ HDL RATIO 3.38 RATIO; HDL CHOLESTEROL 30.4 MG/DL (40.0-60.0)
--- NOTE | 2017-10-24 15:50 | HHI.HP ---
[facility] Service Family Medicine Primary Care Physician [facility] Admission Diagnosis syncope, chronic a fib Diagnoses: (1) Syncope (2) Chronic atrial fibrillation (3) Diabetes (4) Hypertension (5) fen/ppx International Travel<30 Days: No Contact w/Intl Traveler<30days: No Known Affected Area: No History of Present Illness Patient was seen and examined at bedside. He denied any complaints of syncope since yesterday. States feeling well at this time. Denied any complaint of chest pain, lightheadedness, or shortness of breath. Denied any events during the night. Denies any side effects on medication. Denied any fevers or chills. Was seen by cardiology this morning. Review of Systems Eyes: COMPLAINS OF: Vision loss, DENIES: Blurred vision, Diplopia, Eye inflammation, Eye pain Neurologic: DENIES: Headache, Localized weakness, Seizures, Speech Problems, Tremor Other REVIEW OF SYSTEMS: General: Denies fever or other problems. Skin: Denies rash. HEENT: Loss of vision in right eye. No epistaxis. No headache. Head: Denies head injury. Respiratory: No cough. Denies shortness of breath. Cardiovascular: No chest pain. No reduced exercise tolerance. Gastrointestinal: No abdominal pain. No constipation or diarrhea. No hematemesis and rectal bleeding. Genitourinary: No abnormal urination. Hematologic: No easy bruisability. Psychiatric: Denies problems. Past Family Social History Past Medical History Afibb & bypass (last seen 16 years ago) 5-6 years ago he had a Holter monitor Diabetes HTN lung nodule dx on tuesday : 9 mm nodule at right lung base. Patient advised to follow-up with PET scan. "Asbestos lungs" per PCP (he Tuesday CT shows scattered parenchymal scarring in the lungs) Past Surgical History bypass 16 years ago eye surgery knee cartilage ankle surgery tonsillectomy Allergies: Coded Allergies: No Known Allergies (Unverified , 10/24/17) Family History 2 brothers: lung cancer Dad: lung cancer Mom: healthy Social History live at home alone, [place] smoker quit in 1989 (50 years x 2.5packs/day), used to have a drinking problem ( quit 1997), no drugs Physical Exam Vital Signs Vital Signs Date Time Temp Pulse Resp B/P (MAP) Pulse Ox O2 Delivery O2 Flow Rate FiO2 1/8/18 12:25 178/68 (104) 10/24/17 12:25 175/67 (103) 171/71 (104) 168/70 (102) 10/24/17 12:09 97.6 60 18 184/84 (117) 96 10/24/17 08:27 98.1 83 16 134/69 (90) 98 10/24/17 08:18 98.6 72 16 145/66 (92) 95 10/24/17 04:00 97.5 81 16 130/75 (93) 95 10/24/17 00:00 66 10/24/17 00:00 98.0 88 17 134/71 (92) 96 10/23/17 22:03 97.4 57 20 161/81 (107) 99 10/23/17 21:22 98 10/23/17 20:00 60 10/23/17 17:09 98.2 67 18 144/63 (90) 99 10/23/17 15:55 Physical Exam GENERAL: This is a well-nourished, well-developed patient, in no apparent distress. SKIN: No rashes, ecchymoses or lesions. Cool and dry. HEAD: Atraumatic. Normocephalic. No temporal or scalp tenderness. EYES: Dilation of right eye, drooping. No injection or drainage. ENT: Nose without bleeding, purulent drainage or septal hematoma. Throat without erythema, tonsillar hypertrophy or exudate. Uvula midline. Airway patent. NECK: Trachea midline. No JVD or lymphadenopathy. Supple, nontender, no meningeal signs. CARDIOVASCULAR: Regular rate and rhythm without murmurs, gallops, or rubs. RESPIRATORY: Clear to auscultation. Breath sounds equal bilaterally. No wheezes , rales, or rhonchi. GASTROINTESTINAL: Abdomen soft, non-tender, nondistended. No hepato-splenomegaly , or palpable masses. No guarding. MUSCULOSKELETAL: Extremities without clubbing, cyanosis, or edema. No joint tenderness, effusion, or edema noted. No calf tenderness. NEUROLOGICAL: Awake and alert. Motor and sensory grossly within normal limits. Five out of 5 muscle strength in all muscle groups. Normal speech. Laboratory Laboratory Tests Test 10/23/17 21:15 10/24/17 04:37 Troponin I LESS THAN 0.02 LESS THAN 0.02 White Blood Count 10.0 Red Blood Count 4.17 Hemoglobin 12.9 Hematocrit 38.4 Mean Corpuscular Volume 92.2 Mean Corpuscular Hemoglobin 30.9 Mean Corpuscular Hemoglobin Concent 33.5 Red Cell Distribution Width 13.1 Platelet Count 196 Mean Platelet Volume 9.8 Neutrophils (%) (Auto) 61.0 Lymphocytes (%) (Auto) 28.7 Monocytes (%) (Auto) 7.5 Eosinophils (%) (Auto) 2.1 Basophils (%) (Auto) 0.7 Neutrophils # (Auto) 6.1 Lymphocytes # (Auto) 2.9 Monocytes # (Auto) 0.7 Eosinophils # (Auto) 0.2 Basophils # (Auto) 0.1 CBC Comment AUTO DIFF Differential Total Cells Counted 100 Neutrophils % (Manual) 63 Band Neutrophils % 1 Lymphocytes % 25 Monocytes % 7 Eosinophils % 2 Basophils % 2 Neutrophils # (Manual) 6.4 Differential Comment FINAL DIFF MANUAL Platelet Estimate NORMAL Platelet Morphology Comment CLUMPED Red Cell Morphology Comment NORMAL Blood Urea Nitrogen 26 Creatinine 1.22 Random Glucose 102 Total Protein 6.2 Albumin 3.2 Calcium Level 8.2 Alkaline Phosphatase 67 Aspartate Amino Transf (AST/SGOT) 15 Alanine Aminotransferase (ALT/SGPT) 17 Total Bilirubin 0.5 Sodium Level 137 Potassium Level 3.7 Chloride Level 101 Carbon Dioxide Level 26.8 Anion Gap 9 Estimat Glomerular Filtration Rate 57 Triglycerides Level 107 Cholesterol Level 103 LDL Cholesterol 51 HDL Cholesterol 30.4 Cholesterol/HDL Ratio 3.38 Result Diagram: 10/24/1743610/24/17436 Caprini VTE Risk Assessment Caprini VTE Risk Assessment: No/Low Risk (score <= 1) Caprini Risk Assessment Model Point Value = 1 Point Value = 2 Point Value = 3 Point Value = 5 Age 41-60 Minor surgery BMI > 25 kg/m2 Swollen legs Varicose veins or History of unexplained or recurrent spontaneous Oral contraceptives or hormone replacement Sepsis (< 1 month) Serious lung disease, including pneumonia (< 1 month) Abnormal pulmonary function Acute myocardial infarction Congestive heart failure (< 1 month) History of inflammatory bowel disease Medical patient at bed rest Age 61-74 Arthroscopic surgery Major open surgery (> 45 min) Laparoscopic surgery (> 45 min) Malignancy Confined to bed (> 72 hours) Immobilizing plaster cast Central venous access Age >= 75 History of VTE Family history of VTE Factor V Leiden Prothrombin [id number] Lupus anticoagulant Anticardiolipin antibodies Elevated serum homocysteine Heparin-induced thrombocytopenia Other congenital or acquired thrombophilia Stroke (< 1 month) Elective arthroplasty Hip, pelvis, or leg fracture Acute spinal cord injury (< 1 month) Prophylaxis Regimen Total Risk Factor Score Risk Level Prophylaxis Regimen 0-1 Low Early ambulation 2 Moderate Order ONE of the following: *Sequential Compression Device (SCD) *Heparin 5000 units SQ BID 3-4 Higher Order ONE of the following medications: *Heparin 5000 units SQ TID *Enoxaparin/Lovenox 40 mg SQ daily (WT < 150 kg, CrCl > 30 mL/min) *Enoxaparin/Lovenox 30 mg SQ daily (WT < 150 kg, CrCl > 10-29 mL/min) *Enoxaparin/Lovenox 30 mg SQ BID (WT < 150 kg, CrCl > 30 mL/min) AND/OR *Sequential Compression Device (SCD) 5 or more Highest Order ONE of the following medications: *Heparin 5000 units SQ TID (Preferred with Epidurals) *Enoxaparin/Lovenox 40 mg SQ daily (WT < 150 kg, CrCl > 30 mL/min) *Enoxaparin/Lovenox 30 mg SQ daily (WT < 150 kg, CrCl > 10-29 mL/min) *Enoxaparin/Lovenox 30 mg SQ BID (WT < 150 kg, CrCl > 30 mL/min) AND *Sequential Compression Device (SCD) Assessment and Plan Assessment and Plan 82-year-old male with chronic A. fib presenting after syncopal episode, and months of presyncopal symptoms. Problem List: (1) Syncope ICD Codes: R55 - Syncope and collapse Status: Acute Plan: Continue patient's syncopal workup. He has been seen by vascular surgery and cardiology. Awaiting consultation with neurology. Does have some similar syncopal episode in the past. No syncope since initial visit. 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 Discussed results of imaging with the patient. Continue telemetry Awaiting echo results (2) Chronic atrial fibrillation ICD Codes: I48.2 - Chronic atrial fibrillation Status: Chronic Plan: Continue cardiology recommendations Place on telemetry (3) Diabetes ICD Codes: E11.9 - Type 2 diabetes mellitus without complications Plan: Continue to monitor patient's blood sugar Low-dose insulin sliding scale Does admit to hypoglycemia in the past (4) Hypertension ICD Codes: I10 - Essential (primary) hypertension Plan: We'll increase the patient's hydrochlorothiazide, restart his lisinopril He will have medication as needed for increased blood pressure Hold beta blockers due to bradycardia (5) fen/ppx Status: Chronic Plan: Fluids: Continue by mouth fluids, vital signs have been stable, regular diet Electrolytes: Monitor BMP and supplement accordingly DVT ppx: Pt taking Eliquis See the residents documentation for details. I saw and evaluated the patient regarding the see portions of this evaluation and agree with the residents findings and plans as written. Parts of this note were created using [employer] voice recognition software program. While efforts were made to correct any mistakes made by this software, some mistakes, errors, and omissions may remain in the final note that were not caught when the note was originally created. Plan of care was discussed and agreed upon with the patient as specifically documented in the above note. An opportunity to ask questions with explanation was provided. Patient voiced understanding on all information reviewed and discussed. Physician Certification 2 Midnight Certification Type: Admission for Inpatient Services Order for Inpatient Services The services are ordered in accordance with Medicare regulations or non- Medicare payer requirements, as applicable. In the case of services not specified as inpatient-only, they are appropriately provided as inpatient services in accordance with the 2-midnight benchmark. Estimated LOS (days): 2 days is the estimated time the patient will need to remain in the hospital, assuming treatment plan goals are met and no additional complications. Post-Hospital Plan: Home Problem Qualifiers (1) Syncope: Qualified Codes: R55 - Syncope and collapse Edwin Posada MD Oct 24, 2017 15:50
[2017-10-24] MEDS: HYDROCHLOROTHIAZIDE 25 MG TAB PO SCH (16:25)
--- NOTE | 2017-10-24 16:39 | ECHRPT ---
Indication: syncope CONCLUSIONS The left ventricular systolic function is low normal with an estimated ejection fraction in the rang e of 50- 55%. Normal left ventricular size. Trace mitral valve regurgitation. Mild aortic valve stenosis. Aortic valve sclerosis is present. Aortic valve area is 1.2 cm. Aortic valve mean gradient is 20 mmHg. There is mild tricuspid valve regurgitation. The estimated pulmonary arterial pressure is 28.7 mmHg. BP: / HR: Rhythm: MEASUREMENTS (Male / Female) Normal Values Technical Quality:Fair 2D ECHO LV Diastolic Diameter PLAX 3.9 cm 4.2 - 5.9 / 3.9 - 5.3 cm LV Systolic Diameter PLAX 3.0 cm IVS Diastolic Thickness 1.7 cm 0.6 - 1.0 / 0.6 - 0.9 cm LVPW Diastolic Thickness 1.2 cm 0.6 - 1.0 / 0.6 - 0.9 cm LV Relative Wall Thickness 0.8 RV Internal Dim ED PLAX 3.8 cm LVOT Diameter 2.7 cm M-MODE Aortic Root Diameter MM 3.6 cm LA Systolic Diameter MM 3.7 cm LA Ao Ratio MM 1.0 AV Cusp Separation MM 1.4 cm DOPPLER AV Peak Velocity 287.0 cm/s AV Peak Gradient 32.9 mmHg AV Mean Gradient 20.0 mmHg AV Velocity Time Integral 66.3 cm LVOT Peak Velocity 67.7 cm/s LVOT Peak Gradient 1.8 mmHg LVOT Velocity Time Integral 13.6 cm AV Area Cont Eq vti 1.2 cm AV Area Cont Eq pk 1.4 cm Mitral E Point Velocity 93.3 cm/s Mitral A Point Velocity 55.8 cm/s Mitral E to A Ratio 1.7 LV E' Lateral Velocity 7.2 cm/s Mitral E to LV E' Lateral Ratio 12.9 LV E' Septal Velocity 5.1 cm/s Mitral E to LV E' Septal Ratio 18.4 TR Peak Velocity 216.0 cm/s TR Peak Gradient 18.7 mmHg Right Atrial Pressure 10.0 mmHg Pulmonary Artery Systolic Pressu 28.7 mmHg Right Ventricular Systolic Press 28.7 mmHg FINDINGS LEFT VENTRICLE The left ventricular systolic function is low normal with an estimated ejection fraction in the rang e of 50- 55%. Normal left ventricular size. RIGHT VENTRICLE Normal right ventricular size and systolic function. LEFT ATRIUM The left atrial size is normal. RIGHT ATRIUM The right atrial size is normal. ATRIAL SEPTUM Normal atrial septal thickness without atrial level shunting by limited color doppler interrogation. AORTA The aortic root and proximal ascending aorta are normal in size on limited imaging. MITRAL VALVE Structurally normal mitral valve. Trace mitral valve regurgitation. AORTIC VALVE Trileaflet aortic valve. Mild aortic valve stenosis. Aortic valve sclerosis is present. Aortic valve area is 1.2 cm. Aortic valve mean gradient is 20 mmHg. TRICUSPID VALVE Structurally normal tricuspid valve. There is mild tricuspid valve regurgitation. The estimated pulmonary arterial pressure is 28.7 mmHg. PULMONARY VALVE No pulmonary valve regurgitation or stenosis. VESSELS The inferior vena cava is normal in size. PERICARDIUM No pericardial effusion. Royal Hallman MD, FACC (Electronically Signed) Final Date:24 October 2017 16:37
[2017-10-24] MEDS ORDERED: hydrALAZINE HCL 20 MG/ML VIAL IV PUSH PRN (16:45)
[2017-10-24] MEDS ORDERED: hydrALAZINE HCL 10 MG TAB PO PRN (17:00)
--- NOTE | 2017-10-24 19:12 | EKG ---
Date Performed: 10/23/2017 Time Performed: 17:20:57 PTAGE: 82 years EKG: ATRIAL FLUTTER RIGHT BUNDLE BRANCH BLOCK Compared to previous tracing, the patient is no lo nger tachycardic ABNORMAL ECG PREVIOUS TRACING : 10/23/2017 10.55 DOCTOR: Shwetha Condon Interpretating Date/Time 10/24/2017 19:11:26
--- NOTE | 2017-10-25 00:18 | MB ---
cc: TEA POP MD DATE OF CONSULTATION: 10/24/2017 REASON FOR CONSULTATION: TIA, amaurosis fugax. HISTORY OF PRESENT ILLNESS Mr. Evans is an 82-year-old male who presented to the [facility] where he stated that he passed out when he was at a restaurant, [email or web address], and today he had another episode where he felt dizzy about to pass out with some staring, and he states that his heart was pounding with excessive swelling. "My heart was jumping out of my chest," but denies chest pain. He states that after these two episodes, he has large bowel motion with incontinence.There is no history of convulsions, which is tongue biting or post- ictal confusional state. The patient states that on the right eye he is blind because of a piece of metal where he sustained a trauma and he also has difficulty seeing in the left eye. He has recently complained of blurring and difficulty with vision, especially the side of the left eye that lasted a few minutes, recovered completely. PAST MEDICAL HISTORY: 1. The patient has past medical history of atrial fibrillation. 2. Coronary artery disease. 3. Diabetes mellitus. 4. Hypertension. 5. Status post CABG, currently on aspirin 81 milligrams. 6. Lung nodule. 7. Asbestos lung. REVIEW OF SYSTEMS A 12-point review of system is negative except for what is stated in the HPI. PAST SURGICAL HISTORY: 1. Bypass 16 years ago. 2. Eye surgery. 3. Knee cartilage. 4. Ankle surgery. 5. Tonsillectomy. MEDICATIONS: 1. Metoprolol. 2. Hydrochlorothiazide. 3. Aspirin. FAMILY HISTORY: Two brothers with lung cancer. Father with lung cancer. Father is healthy. SOCIAL HISTORY: Lives alone. He quit smoking in 1989. He used to have a drinking problem, quit in 1997. Denies drugs. PHYSICAL EXAMINATION General: Overweight, good historian, not in apparent distress. HEENT: Atraumatic, normocephalic. Blind right eye, chronic. Left eye, diminished visual acuity. Intact hearing. Neck: Trachea midline. No signs of meningeal irritation. Cardiovascular: Regular rhythm and a murmur Respiratory: Clear to auscultation. No wheezes. Gastrointestinal: Soft abdomen, nontender. No organomegaly. Musculoskeletal: No clubbing, cyanosis or edema. Neurological: Awake, alert, oriented to time, person and place. No dysarthria or dysphagia. Cranial nerve examination, right pupil is surgical pupil, left pupil 2 mm reacting to light. No nystagmus. No ptosis. No facial asymmetry. Upper and lower extremity 5/5 symmetrical, with no abnormal movement, normal tone. Sensation is intact throughout. [id number] and is intact, reflexes 1 + bilateral symmetrical. Plantars are bilaterally downgoing. DIAGNOSTIC LABS White blood cells 10, hemoglobin 12.9, platelet 196, sodium 137, potassium 3.7 , BUN 26, creatinine 1.22, calcium 8.2. DIAGNOSTIC IMAGING - Carotid ultrasound revealed greater than 50% stenosis in the right carotid artery. - CTA with contrast revealed mild to moderate calcified plaque bilaterally with evidence of mild to moderate stenosis in the proximal ICA 30 to 49 range. Patent vertebral arteries without significant proximal stenosis. DIAGNOSTIC IMPRESSION 1. Syncopal episode. 2. Unlikely a seizure episode. Likely etiology is cardiac. 3. Chronic atrial fibrillation. PLAN: Neuro checks q4 hourly, stable neurologic exam. Continue aspirin. Start Eliquis 5 milligrams twice daily Telemetry. No need for further neurologic workup. Follow up with neurology as outpatient. Thank you for the opportunity to participate in the care of your patient. MD MICHELLE Perez/ELEAZAR /9:43 PM /11:52 PM KOBI
[2017-10-25 01:55] VITALS: PULSE 57
[2017-10-25] MEDS: SODIUM CHLOR 0.45% 1000 ML INJ 1,000 ML IV SCH (02:32)
[2017-10-25 03:24] VITALS: BP 140/63; PULSE 54; RESP 17; TEMP 98; O2SAT 93
[2017-10-25 07:27] LABS: HEMATOCRIT 39.8 % (39.0-51.0); HEMOGLOBIN 13.7 GM/DL (13.0-17.0); MEAN CELL VOLUME 92.1 FL (80.0-100.0); MEAN CORPUSCULAR HEMOGLOBIN 31.7 PG (27.0-34.0); MEAN CORPUSCULAR HGB CONC 34.4 % (32.0-36.0); MEAN PLATELET VOLUME 8.5 FL (7.0-11.0); PLATELET COUNT 191 TH/MM3 (150-450); RED BLOOD COUNT 4.32 MIL/MM3 (4.50-5.90); WHITE BLOOD COUNT 7.2 TH/MM3 (4.0-11.0)
--- NOTE | 2017-10-25 07:39 | PD.CARD.PN ---
Subjective Subjective Remarks No episodes. Objective Medications Current Medications Medications (Trade) Dose Ordered Sig/Jaylene Route Start Time Stop Time Status Last Admin (Ecotrin Ec) 81 mg DAILY PO 10/24/17 09:00 10/24/17 10:01 (Compazine) 10 mg Q6H PRN PO 10/23/17 14:00 Non-Formulary Medication 1 tab DAILY PO 10/24/17 09:00 UNV Non-Formulary Medication 1 cap HS PO 10/23/17 21:00 UNV Sodium Chloride 1,000 ml @ 130 mls/hr [id number] IV 10/23/17 14:08 10/25/17 02:32 (NS Flush) 2 ml UNSCH PRN IV FLUSH 10/23/17 14:15 (NS Flush) 2 ml BID IV FLUSH 10/23/17 21:00 10/24/17 10:01 (Tylenol) 650 mg Q4H PRN PO 10/23/17 14:15 (Narcan Inj) 0.4 mg UNSCH PRN IV PUSH 10/23/17 14:15 (D50w (Vial) Inj) 50 ml UNSCH PRN IV PUSH 10/23/17 21:45 (Glucagon Inj) 1 mg UNSCH PRN OTHER 10/23/17 21:45 (NovoLOG SUPPLEMENTAL SCALE) 1 ACHS SLIDING SCALE SQ 10/24/17 08:00 (Eliquis) 5 mg BID PO 10/24/17 09:30 10/24/17 21:16 (Prinivil) 40 mg DAILY PO 10/25/17 09:00 (Hydrodiuril) 25 mg DAILY PO 10/24/17 16:00 10/24/17 16:25 (Apresoline) 10 mg Q6HR PRN PO 10/24/17 17:00 (Pravachol) 80 mg DAILY PO 10/25/17 09:00 UNV Vital Signs / I&O Vital Signs Date Time Temp Pulse Resp B/P (MAP) Pulse Ox O2 Delivery O2 Flow Rate FiO2 10/25/17 03:24 98.0 54 17 140/63 (88) 93 10/25/17 01:55 57 10/24/17 23:19 98.3 80 18 173/69 (103) 93 10/24/17 20:24 97.8 71 17 153/68 (96) 95 10/24/17 16:06 53 10/24/17 15:48 97.6 55 16 169/72 (104) 98 Manual Cuff/Auscultation 10/24/17 12:25 178/68 (104) 10/24/17 12:25 175/67 (103) 171/71 (104) 168/70 (102) 10/24/17 12:09 97.6 60 18 184/84 (117) 96 10/24/17 12:05 61 10/24/17 08:27 98.1 83 16 134/69 (90) 98 10/24/17 08:18 98.6 72 16 145/66 (92) 95 10/24/17 08:10 79 I/O 10/24/17 10/24/17 10/24/17 10/25/17 10/25/17 10/25/17 07:00 15:00 23:00 07:00 15:00 23:00 Intake Total 1000 ml 200 ml Balance 1000 ml 200 ml Intake Oral 200 ml IV Total 1000 ml # Voids 6 6 Physical Exam irregular. Rate controlled Laboratory Laboratory Tests Test 10/25/17 07:15 White Blood Count 7.2 TH/MM3 Red Blood Count 4.32 MIL/MM3 Hemoglobin 13.7 GM/DL Hematocrit 39.8 % Mean Corpuscular Volume 92.1 FL Mean Corpuscular Hemoglobin 31.7 PG Mean Corpuscular Hemoglobin Concent 34.4 % Red Cell Distribution Width 13.0 % Platelet Count 191 TH/MM3 Mean Platelet Volume 8.5 FL Assessment and Plan Assessment and Plan Rhythm strips demonstate controlled response. BP improved but still a bit high. Will increase lisinopril to 20 mg daily. Ok to ambulate. Recommend 7 day event monitor as out-patient. Continue Eliquis for thrombo-embolic protection. Arash Burgess MD Oct 25, 2017 07:39
[2017-10-25 07:50] LABS: BICARBONATE 26.4 MEQ/L (21.0-32.0); CALCIUM 8.8 MG/DL (8.5-10.1); CREATININE 1.21 MG/DL (0.60-1.30)
[2017-10-25 07:52] VITALS: BP 166/73; PULSE 56; RESP 16; TEMP 97.6; O2SAT 95
[2017-10-25] MEDS ORDERED: HYDROCHLOROTHIAZIDE 12.5 MG CAP PO SCH (09:00)
[2017-10-25] MEDS ORDERED: LISINOPRIL 20 MG TAB PO SCH (09:00)
[2017-10-25] MEDS ORDERED: PRAVASTATIN SOD 80 MG TAB PO SCH (09:00)
[2017-10-25] MEDS: HYDROCHLOROTHIAZIDE 25 MG TAB PO SCH (10:15)
[2017-10-25] MEDS: ASPIRIN EC 81 MG TABEC PO SCH (10:16)
[2017-10-25] MEDS: APIXABAN 5 MG TABLET PO SCH (10:16)
[2017-10-25] MEDS: INSULIN ASPART SUPPLEMENTAL SCALE SQ SCH (10:23)
--- NOTE | 2017-10-25 10:36 | HHI.FPPN ---
Subjective Remarks Patient seen and examined bedside this morning. Patient states he had no acute events overnight. He denies any presyncopal feelings; denies any dizziness, confusion, incontinence. Patient continues to do well and he is inquiring about when he can go home. Patient denies any palpitations. Patient denies any chest pain/shortness breath/dizziness. Objective Vitals Vital Signs Date Time Temp Pulse Resp B/P (MAP) Pulse Ox O2 Delivery O2 Flow Rate FiO2 10/25/17 07:52 97.6 56 16 166/73 (104) 95 10/25/17 03:24 98.0 54 17 140/63 (88) 93 10/25/17 01:55 57 10/24/17 23:19 98.3 80 18 173/69 (103) 93 10/24/17 20:24 97.8 71 17 153/68 (96) 95 10/24/17 16:06 53 10/24/17 15:48 97.6 55 16 169/72 (104) 98 Manual Cuff/Auscultation 10/24/17 12:25 178/68 (104) 10/24/17 12:25 175/67 (103) 171/71 (104) 168/70 (102) 10/24/17 12:09 97.6 60 18 184/84 (117) 96 10/24/17 12:05 61 I/O 10/24/17 10/24/17 10/24/17 10/25/17 10/25/17 10/25/17 06:59 14:59 22:59 06:59 14:59 22:59 Intake Total 1000 ml 200 ml Balance 1000 ml 200 ml Intake Oral 200 ml IV Total 1000 ml # Voids 6 6 Result Diagram: 10/25/1715 10/25/1715 Objective Remarks GENERAL: This is a well-nourished, well-developed patient, in no apparent distress. SKIN: No rashes, ecchymoses or lesions. Cool and dry. HEAD: Atraumatic. Normocephalic. EYES: Right pupil dilated. Extraocular motions intact. No scleral icterus. No injection or drainage. ENT: Nose without bleeding, purulent drainage or septal hematoma. Uvula midline. Airway patent. NECK: Trachea midline. No JVD or lymphadenopathy. Supple, nontender, no meningeal signs. CARDIOVASCULAR: Irregular rhythm noted, 3/6 systolic murmur, gallops, or rubs. RESPIRATORY: Breath sounds equal bilaterally. Mild wheezing and coarse breath sounds throughout. No coughing. GASTROINTESTINAL: Abdomen soft, nondistended. MUSCULOSKELETAL: Extremities without clubbing, cyanosis, or edema. No joint tenderness, effusion, or edema noted. No calf tenderness. Negative Homans sign bilaterally. NEUROLOGICAL: Awake and alert. Cranial nerves II through XII intact. Motor and sensory grossly within normal limits. Five out of 5 muscle strength in all muscle groups. Normal speech. A/P Assessment and Plan 82-year-old male with chronic A. fib presenting after syncopal episode, and months of presyncopal symptoms. Discharge Planning Anticipate discharge once syncope work up has been completed and pt has been evaluated by cardiology and vascular surgery. Problem List: (1) Syncope ICD Codes: R55 - Syncope and collapse Status: Acute Plan: Continue patient's syncopal workup. He has been seen by vascular surgery , neurology, and cardiology. Cardiology recommendations - Blood pressure improved but still high, rhythm strips demonstrate controlled response - Added Lisinopril 40mg daily - Discharge with 7 day event monitor and follow-up with cardiology - Continue Eliquis for anticoagulation - Echocardiogram within normal limits Vascular surgery - Continue aspirin and statin - Syncopal episode likely not due to carotid stenosis Neurology - Continue aspirin and Eliquis - Although up with neurology as outpatient follow-up with neurology as outpatient f/u MRI (2) Chronic atrial fibrillation ICD Codes: I48.2 - Chronic atrial fibrillation Status: Chronic Plan: See cardiology recommendations as mentioned above (3) Diabetes ICD Codes: E11.9 - Type 2 diabetes mellitus without complications Plan: Continue to monitor patient's blood sugar, no signs of hypoglycemia BS 89-132 Low-dose insulin sliding scale (4) Hypertension ICD Codes: I10 - Essential (primary) hypertension Plan: BP overnight slightly high in last 24h [134 -184/ 63- 73] Lisinopril 40 mg daily (started 10/25) Hydrochlorothiazide 25 mg daily (started 10/24) Hold beta blockers due to bradycardia - f/u BPs (5) fen/ppx Status: Chronic Plan: Fluids: Continue by mouth fluids, vital signs have been stable, regular diet Electrolytes: Monitor BMP and supplement accordingly DVT ppx: Pt taking Eliquis See the residents documentation for details. I saw and evaluated the patient regarding the see portions of this evaluation and agree with the residents findings and plans as written. Parts of this note were created using [employer] voice recognition software program. While efforts were made to correct any mistakes made by this software, some mistakes, errors, and omissions may remain in the final note that were not caught when the note was originally created. Plan of care was discussed and agreed upon with the patient as specifically documented in the above note. An opportunity to ask questions with explanation was provided. Patient voiced understanding on all information reviewed and discussed. Problem Qualifiers (1) Syncope: Qualified Codes: R55 - Syncope and collapse Ivone Orosco MD R2 Oct 25, 2017 10:36
[2017-10-25] MEDS ORDERED: HYDR25TA5 PO (11:04)
[2017-10-25] MEDS ORDERED: LISI-515 PO (11:04)
[2017-10-25] MEDS ORDERED: APIX5TAB PO (11:04)
[2017-10-25] MEDS ORDERED: PRAV80TA PO (11:04)
--- NOTE | 2017-10-25 11:05 | HHI.DCPOC ---
Discharge Care Plan Diagnosis: (1) Syncope (2) Chronic atrial fibrillation (3) Carotid artery disease Goals to Promote Your Health * To prevent worsening of your condition and complications * To maintain your health at the optimal level Directions to Meet Your Goals Take your medications as prescribed Follow your dietary instruction Follow activity as directed Keep your appointments as scheduled Take your immunizations and boosters as scheduled If your symptoms worsen call your PCP, if no PCP go to Urgent Care Center or Emergency Room Smoking is Dangerous to Your Health. Avoid second hand smoke Call the 24-hour hour crisis hotline for domestic abuse at Ivone Orosco MD R2 Oct 25, 2017 11:05
--- NOTE | 2017-10-25 11:23 | RADRPT ---
EXAM DATE/TIME: 10/25/2017 10:35 [facility] COMPARISON: No previous studies available for comparison. INDICATIONS : Syncope. RADIATION DOSE: 56.37 CTDIvol (mGy) MEDICAL HISTORY : Cardiovascular disease. Diabetes mellitus type 2. Hypertension. SURGICAL HISTORY : None. ENCOUNTER: Initial ACUITY: 1 day PAIN SCALE: 0/10 LOCATION: cranial TECHNIQUE: Multiple contiguous axial images were obtained of the head. Using automated exposure control and adj ustment of the mA and/or kV according to patient size, radiation dose was kept as low as reasonably a chievable to obtain optimal diagnostic quality images. DICOM format image data is available electro nically for review and comparison. 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 There is no evidence of intracranial he morrhage or mass. The ventricles are symmetric and normal. Posterior fossa and brainstem structures a re unremarkable. CONCLUSION: No acute intracranial findings. Dusty Parks MD on October 25, 2017 at 11:18 Board Certified Radiologist. This report was verified electronically.
[2017-10-25 12:48] VITALS: BP 165/68; PULSE 61; RESP 18; TEMP 98.2; O2SAT 95
== END 2017-10-25 16:20 | disposition home or self-care (01) ==
LOC: NEPC 10:38 → NEDA 13:19 → NEPGCP 15:25
PROVIDERS: ADMIT Family Medicine; ATTEND Family Medicine
DX: R55 Syncope and collapse (principal); I48.2 Chronic atrial fibrillation; E11.9 Type 2 diabetes mellitus without complications; I10 Essential (primary) hypertension; R91.1 Solitary pulmonary nodule; Z87.891 Personal history of nicotine dependence; I25.10 Atherosclerotic heart disease of native coronary artery without angina pectoris; Z95.1 Presence of aortocoronary bypass graft; Z79.82 Long term (current) use of aspirin; I65.21 Occlusion and stenosis of right carotid artery; E78.00 Pure hypercholesterolemia, unspecified; I25.2 Old myocardial infarction; Z79.84 Long term (current) use of oral hypoglycemic drugs; Z79.899 Other long term (current) drug therapy; R94.31 Abnormal electrocardiogram [ECG] [EKG]; I45.10 Unspecified right bundle-branch block
CPT/HCPCS: 70450; 70498; 80048; 80053; 80061; 82948; 84484; 85007; 85025; 85027; 93005; 93306; 93880; 96360; 96361; 96372; 99285; G0378; J1815; Q9967